=== PATIENT | male | born 1965 | race Caucasian/White ===

== ENCOUNTER → 2017-04-18 | Outpatient (CLI) | payer BC ==
--- NOTE | ~2017-04-18 | MR32 ---
[facility] A Service of [facility] RADIOLOGY TEXT RESULTS PATIENT: NISSA HENLEY LOCATION: [facility] : 61 UNIT #: [id number] AGE: [address]: SARAH LOPEZ MD SEX: M ORDER DR: [id number] [place] [id number] O MR#: [id number] Acc #: [id number] NAME: NISSA HENLEY. : 1965 SEX: M STUDY DATE/TIME: 04/18/2017 14:24 UNIT: [facility] ROOM: STUDY DESCRIPTION: MR Cervical Wo Contrast Attending Physician: Sarah Lopez M.D. Referring Physician: Sarah Lopez M.D. Ordering Physician: Sarah Lopez M.D. Primary Care Physician: [facility] REPORT This report is preliminary unless electronic signature is present. EXAM Cervical spine MRI no contrast 04/18/2017 PROCEDURE Routine cervical spine MRI without contrast COMPARISON None. CLINICAL HISTORY Three month history of progressively increasing neck pain and limited range of motion. FINDINGS Alignment and bone marrow and cord signal are normal. The posterior fossa and its contents are normal. 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 It is no more than about a mm in maximal dimension. Cord signal is otherwise normal. At 2-3, the canal and foramina are within normal limits. At 3-4, the canal and right foramen are normal and there is mild left foraminal narrowing. At 4-5, there is mild canal stenosis without cord compression and mild right and moderate or moderate to severe left foraminal narrowing. At 5-6, there is no substantial canal or foraminal stenosis. At 6-7, there is borderline to mild canal stenosis and mild right and moderate left foraminal stenosis. At C7-T1, the canal and foramina are normal. [facility] A Service [facility] RADIOLOGY TEXT RESULTS PATIENT: NISSA HENLEY LOCATION: [facility] : 61 UNIT #: [id number] AGE: [address]: SARAH LOPEZ MD SEX: M ORDER DR: IMPRESSION Modest degenerative change with areas of canal and foraminal narrowing but no cord compression. There is a tiny syrinx in the cord extending from about the C6 upper endplate to C7 lower endplate. However, there is no other abnormal cord signal. A postcontrast study could be considered given the presence of a tiny syrinx, though again a benign etiology is favored. Please see above for additional level by level details. Dictated by... Melo Hagan M.D. THIS IS AN ELECTRONICALLY VERIFIED REPORT Melo Hagan M.D. at 04/24/2017 5:21 PM KAYLEIGH/wu TD: 04/19/2017 21:02 JOB #: [id number] [facility] REPORT Page 1 of 1
== END | disposition home or self-care (01) ==
LOC: SMRI 07:43
DX: R20.2 Paresthesia of skin (principal); M47.892 Other spondylosis, cervical region
CPT/HCPCS: 72141